=== PATIENT | male | born 1990 | race Hispanic/Latino ===

== ENCOUNTER 2021-02-08 08:21 | Emergency (ER) | payer MEDICAID, OTHER ==
[~2021-02-08] VITALS: Ht 170.2 cm; Wt 65.8 kg
[2021-02-08 08:30] VITALS: BP 118/76
[2021-02-08] MEDS ORDERED: TETANUS/DIPHTHERIA TOXOID [ADULT] 0.5 ML VIAL IM ONE (08:30)
[2021-02-08] MEDS ORDERED: RABIES IMMUNE GLOBULIN/THIMER 150 UNITS/ML SYG IM ONE (08:30)
[2021-02-08] MEDS ORDERED: CEFTRIAXONE 1G VIAL IVP ONE (08:30)
[2021-02-08] MEDS ORDERED: RABIES VACC, HUMAN DIPLOID/PF 2.5 UNIT ML IM SCH (08:30)
[2021-02-08] MEDS ORDERED: AMOX/CLAV 875/125MG TAB PO ONE (08:30)
[2021-02-08] MEDS ORDERED: ACETAMINOPHEN WITH CODEINE 1 TAB TAB ONE (09:43)
[2021-02-08] MEDS ORDERED: ACETAMINOPHEN WITH CODEINE 1 TAB TAB PO ONE (10:00)
[2021-02-08] MEDS ORDERED: AMOX-429 PO (11:20)
[2021-02-08] MEDS ORDERED: NAPR-1180 PO (11:20)
== END 2021-02-08 11:52 | disposition home or self-care (01) ==
LOC: EDH 08:21
DX: S81.852A Open bite, left lower leg, initial encounter (principal); W54.0XXA Bitten by dog, initial encounter; Y93.89 Activity, other specified; Y92.89 Other specified places as the place of occurrence of the external cause; Y99.8 Other external cause status
CPT/HCPCS: 90471; 90472; 90675; 90714; 96374; 99284; J0696

== ENCOUNTER 2022-04-23 13:05 | Emergency (ER) | payer OTHER ==
[~2022-04-23] VITALS: Ht 167.6 cm; Wt 72.6 kg
[~2022-04-23 13:05] MED LIST: AMOX-429 PO; NAPR-1180 PO
[2022-04-23 14:17] LABS: BASOPHILS % (AUTO) 0.4 % (0.0-5.0); EOSINOPHILS % (AUTO) 0.5 % (0.0-8.0); HEMATOCRIT 37.2 % (42-54); MEAN CORPUSCULAR HEMOGLOBIN 31.4 pg (27.0-33.0); MEAN CORPUSCULAR HGB CONC 35.5 g/dL (32.0-36.0); MEAN CORPUSCULAR VOLUME 88.4 fL (79-99); MONOCYTES % (AUTO) 6.9 % (3.0-13.0); NEUTROPHILS % (AUTO) 82.5 % (40.0-77.0); PLATELET COUNT (AUTO) 186 K/uL (130-400); RED BLOOD CELL COUNT(AUTO) 4.21 MIL/uL (4.50-6.20); RED CELL DISTRIBUTION WIDTH 13.2 % (11.0-15.5); WHITE BLOOD COUNT (AUTO) 11.7 K/uL (4.8-10.8)
[2022-04-23 14:45] LABS: ALBUMIN 4.1 g/dL (3.5-5.0); CREATININE 1.1 mg/dL (0.5-1.5)
[2022-04-23 16:49] VITALS: BP 133/79
== END 2022-04-23 17:10 | disposition left against medical advice (07) ==
LOC: EDH 13:05
DX: F10.129 Alcohol abuse with intoxication, unspecified (principal); Z79.1 Long term (current) use of non-steroidal anti-inflammatories (NSAID)
CPT/HCPCS: 36415; 80053; 85025

== ENCOUNTER 2022-06-18 03:38 | Emergency (ER) | payer OTHER ==
[2022-06-18] MEDS ORDERED: 0.9%NACL 1000ML 1,000 ML IV ONE (04:00)
[2022-06-18 04:51] LABS: BASOPHILS % (AUTO) 1.1 % (0.0-5.0); EOSINOPHILS % (AUTO) 0.8 % (0.0-8.0); HEMATOCRIT 44.2 % (42-54); LYMPHOCYTES % (AUTO) 35.2 % (21.0-51.0); MEAN CORPUSCULAR HGB CONC 34.8 g/dL (32.0-36.0); MEAN CORPUSCULAR VOLUME 89.1 fL (79-99); MONOCYTES % (AUTO) 11.8 % (3.0-13.0); NEUTROPHILS % (AUTO) 50.8 % (40.0-77.0); PLATELET COUNT (AUTO) 210 K/uL (130-400); RED BLOOD CELL COUNT(AUTO) 4.96 MIL/uL (4.50-6.20); RED CELL DISTRIBUTION WIDTH 13.7 % (11.0-15.5); WHITE BLOOD COUNT (AUTO) 3.6 K/uL (4.8-10.8)
[2022-06-18 05:02] LABS: CARBON DIOXIDE 26 mmol/L (21-32); CHLORIDE 97 mmol/L (101-111); CREATININE 0.9 mg/dL (0.5-1.5); GLOMERULAR FILTR. RATE CALC 104 mL/min (>60); GLUCOSE,RANDOM 102 mg/dL (70-105); POTASSIUM 3.7 mmol/L (3.5-5.1); SODIUM SERUM 137 mmol/L (136-145); UREA NITROGEN, BLOOD 7 mg/dL (7-18)
[2022-06-18 05:08] LABS: ALANINE AMINOTRANSFERASE 373 U/L (12-78); ALBUMIN 4.5 g/dL (3.5-5.0); ASPARTATE AMINOTRANSFERASE 216 U/L (10-37); TOTAL PROTEIN, SERUM 8.4 g/dL (6.0-8.3)
[2022-06-18 05:15] LABS: SALICYLATE < 2.8 mg/dL (2.8-20.0)
[2022-06-18 05:16] LABS: ACETAMINOPHEN < 1 mcg/mL (10-29); ALCOHOL, BLOOD 335 mg/dL (0-10)
[2022-06-18 05:32] LABS: AMPHET/METH SCREEN,URINE NEGATIVE (NEGATIVE); APPEARANCE,URINE CLEAR (CLEAR); BARBITURATE SCREEN, URINE NEGATIVE (NEGATIVE); BENZODIAZEPINES SCREEN,URINE NEGATIVE (NEGATIVE); BILIRUBIN,URINE NEGATIVE (NEGATIVE); CANNABINOID SCREEN,URINE NEGATIVE (NEGATIVE); COCAINE SCREEN,URINE NEGATIVE (NEGATIVE); COLOR,URINE COLORLESS (YELLOW); GLUCOSE, URINE (UA) NEGATIVE (NEGATIVE); KETONES,URINE NEGATIVE (NEGATIVE); LEUKOCYTE ESTERASE ,URINE NEGATIVE Leu/uL (NEGATIVE); NITRATE,URINE NEGATIVE (NEGATIVE); OPIATE SCREEN,URINE NEGATIVE (NEGATIVE); PHENCYCLIDINE SCREEN,URINE NEGATIVE (NEGATIVE); PROTEIN,URINE NEGATIVE (NEGATIVE); UROBILINOGEN,URINE 0.2 mg/dL (0.2-1.0)
[2022-06-18 05:35] LABS: OCCULT BLOOD,URINE NEGATIVE (NEGATIVE)
[2022-06-18] MEDS ORDERED: LORAZEPAM 0.5 MG TABLET PO ONE (16:30)
[2022-06-18 19:13] VITALS: BP 128/67
== END 2022-06-18 19:26 | disposition home or self-care (01) ==
LOC: EDH 03:38
DX: F10.129 Alcohol abuse with intoxication, unspecified (principal); Z79.1 Long term (current) use of non-steroidal anti-inflammatories (NSAID); Z79.2 Long term (current) use of antibiotics; Z20.822 Contact with and (suspected) exposure to COVID-19; Y90.8 Blood alcohol level of 240 mg/100 ml or more
CPT/HCPCS: 99283; 87635; 80053; 80305; 85025; 36415; 81003; G0481; C9803; J7030